=== PATIENT | male | born 1970 | race African-American/Black ===

== ENCOUNTER 2023-10-24 22:51 | Emergency (ER) | payer BC ==
[~2023-10-24] VITALS: Ht 167.6 cm; Wt 98.0 kg
[2023-10-24 22:54] VITALS: O2SAT 99
[2023-10-24 23:10] VITALS: BP 147/84; PULSE 77; RESP 12; TEMP 98.3
[2023-10-24] MEDS: ASPIRIN 81MG TABLET PO ONE (23:47)
== END 2023-10-24 23:55 | disposition left against medical advice (07) ==
LOC: ER 23:18
DX: R07.89 Other chest pain (principal); E78.00 Pure hypercholesterolemia, unspecified
CPT/HCPCS: 93005; 99283; Z7610; 80053; 83880; 84484; 85379